=== PATIENT | female | born 1980 | race Two or more races ===

== ENCOUNTER 2019-04-19 08:23 | Inpatient (IN) | payer OTHER ==
[~2019-04-19] VITALS: Ht 180.3 cm; Wt 67.6 kg
[2019-04-19] MEDS ORDERED: DEXTROSE 50%-WATER 50 ML DISP.SYRIN IVP ONE (08:30)
--- NOTE | 2019-04-19 08:30 | NUR ---
[id number] FRM HOME, ALTERED W/ LOW BLOOD SUGAR. D10 AND GLUCAGON GIVEN FURNACE INSTALLER. BG 35 FURNACE INSTALLER. PATIENT STARTING TO BECOME VERBALLY RESPONSIVE ONCE TRANSFERRED TO BED. PATIENT CAME IN WITH IO ON LEFT LEG FROM PARAMEDICS. PATIENT ATTACHED TO THE PROGRESS MAN.
[2019-04-19] MEDS ORDERED: DEXTROSE 50%-WATER 50 ML DISP.SYRIN ONE (08:36)
--- NOTE | 2019-04-19 08:40 | NUR ---
ED Adams MD AWARE AT BEDSIDE. IV LINE ESTABLISHED, BLOOD DRAWN.
[2019-04-19 08:49] LABS: BASOPHILS % (AUTO) 0.2 % (0.0-2.0); HEMATOCRIT 43 % (33-45); HEMOGLOBIN 13.9 g/dL (11.5-14.8); LYMPHOCYTES # (AUTO) 0.6 /CMM (0.8-4.8); MEAN CORPUSCULAR HGB CONC 33 g/dl (31.0-36.0); MEAN CORPUSCULAR VOLUME 106 fL (82-100); MONOCYTES # (AUTO) 0.4 /CMM (0.1-1.30); MONOCYTES % (AUTO) 3.4 % (2.0-12.0); NEUTROPHILS # (AUTO) 9.4 /CMM (1.8-8.9); NEUTROPHILS % (AUTO) 90.4 % (43.0-81.0); PLATELET COUNT (AUTO) 284 /CMM (150-450); RED BLOOD CELL COUNT(AUTO) 4.02 MIL/uL (4.0-5.2); WHITE BLOOD COUNT (AUTO) 10.5 K/uL (4.3-11.0)
[2019-04-19 08:56] LABS: CALCIUM, SERUM 9.4 mg/dL (8.5-10.1); CARBON DIOXIDE 15 mmol/L (21-32); CHLORIDE 102 mmol/L (98-107); CREATININE 0.9 mg/dL (0.6-1.3); GLUCOSE 51 mg/dL (74-106); POTASSIUM 4.7 mmol/L (3.5-5.1); SODIUM SERUM 141 mmol/L (136-145); UREA NITROGEN, BLOOD 9 mg/dL (7-18)
[2019-04-19] MEDS ORDERED: ONDANSETRON HCL/PF 4 MG/2 ML VIAL ONE (09:05)
[2019-04-19 09:06] LABS: ALANINE AMINOTRANSFERASE 656 U/L (12-78); ALBUMIN 4.4 g/dL (3.4-5.0); ALKALINE PHOSPHATASE 127 U/L (46-116); ASPARTATE AMINOTRANSFERASE 876 U/L (15-37); BILIRUBIN,DIRECT 1.1 mg/dL (0.0-0.2); BILIRUBIN,TOTAL 1.5 mg/dL (0.2-1.0); TOTAL PROTEIN, SERUM 7.8 g/dL (6.4-8.2)
--- NOTE | 2019-04-19 09:10 | NUR ---
VERÓNICA AT BEDSIDE, SPOKE WITH DR. ARCHULETA.
[2019-04-19] MEDS ORDERED: ONDANSETRON HCL/PF 4 MG/2 ML VIAL IV ONE (09:30)
[2019-04-19] MEDS ORDERED: IV NS 0.9% 1,000 ML BAG IV ONE (09:30)
[2019-04-19 09:54] LABS: NEUTROPHILS % (MANUAL) 88 (42-76)
--- NOTE | 2019-04-19 09:54 | NUR ---
PATIENT A/OX4, TOLERATED MEAL TRAY.
[2019-04-19 09:55] LABS: LYMPHOCYTES % (MANUAL) 6 % (16-48); MONOCYTES % (MANUAL) 6 % (0-11.0)
--- NOTE | 2019-04-19 10:26 | NUR ---
PATIENT AWAKE AND ALERT, STILL C/O WEAKNESS ON BLE. PATIENT UNABLE TO GET OUT OF BED.
[2019-04-19 10:44] LABS: APPEARANCE,URINE Clear (CLEAR); BILIRUBIN,URINE Negative (NEGATIVE); BLOOD, URINE Large Ery/uL (NEGATIVE); COLOR,URINE Yellow (YELLOW); KETONES,URINE 15 (NEGATIVE); LEUKOCYTE ESTERASE ,URINE Negative (NEGATIVE); NITRITE, URINE Negative (NEGATIVE); PH,URINE 5.5 (5.0-8.0); PROTEIN,URINE Trace mg/dl (NEGATIVE); UGLUCOSE Negative (NEGATIVE); UROBILINOGEN,URINE 0.2 EU/dL (0.2)
[2019-04-19 10:45] LABS: BACTERIA,URINE Few /HPF (None Seen); SQUAMOUS EPITHELIAL CELL,UR Few /HPF (None Seen)
[2019-04-19] MEDS ORDERED: ESCI20TA PO (10:45)
[2019-04-19] MEDS ORDERED: ONDA4TAB5 PO (10:45)
[2019-04-19] MEDS ORDERED: AMPH30CA3 PO (10:45)
[2019-04-19] MEDS ORDERED: PROP10TA10 PO (10:45)
[2019-04-19] MEDS ORDERED: TRAZ-252 PO (10:45)
[2019-04-19] MEDS ORDERED: GABA-534 PO (10:45)
[2019-04-19] MEDS ORDERED: BUPR-96 PO (10:45)
--- NOTE | 2019-04-19 11:28 | NUR ---
CALLED [facility].
--- NOTE | 2019-04-19 11:32 | NUR ---
CALLED FOR TELE BED
[2019-04-19] MEDS ORDERED: IV D5/0.45 NACL 1,000 ML IV PRN (11:42)
[2019-04-19] MEDS ORDERED: HYDROCODONE/APAP 5/325MG 1 EACH TABLET PO PRN (12:00)
[2019-04-19] MEDS ORDERED: ONDANSETRON HCL/PF 4 MG/2 ML VIAL IVP PRN (12:00)
[2019-04-19] MEDS ORDERED: ACETAMINOPHEN 325 MG TABLET PO PRN (12:00)
[2019-04-19] MEDS ORDERED: MAGNESIUM HYDROXIDE 30 ML UDC PO PRN (12:00)
[2019-04-19] MEDS ORDERED: MAG HYDROX/AL HYDROX/SIMETH 30 ML UDC PO PRN (12:00)
[2019-04-19] MEDS ORDERED: ZOLPIDEM TARTRATE 5 MG TABLET PO PRN (12:00)
[2019-04-19] MEDS ORDERED: Z GUARD REMEDY 2 OZ OINT TP PRN (12:00)
--- NOTE | 2019-04-19 12:01 | NUR ---
GOT BED 116-2
--- NOTE | 2019-04-19 12:17 | NUR ---
REPORT GIVEN TO FAUZIA FUNEZ.
--- NOTE | 2019-04-19 12:47 | NUR ---
PATIENT TRANSFERRED TO ROOM 116-2 VIA ACLS PROTOCOL. NO DISTRESS NOTED.
[2019-04-19 13:00] VITALS: BP 116/48
[2019-04-19] MEDS: BLOOD SUGAR DIAGNOSTIC 1 EACH STRIP IN SCH ×3 (13:00→20:54)
--- NOTE | 2019-04-19 13:00 | NUR ---
RN NOTES PATIENT EATING.REFUSED REPEAT BLOOD SUGAR CHECK AT THIS TIME.
--- NOTE | 2019-04-19 13:00 | NUR ---
ASSISTANT ASSOCIATE PROFESSOR NOTES RECEIVED PT FROM ER, DX DEHYDRATION, HYPOGLYCEMIA BY DR. WRIGHT. PT AAO X 3, ACCOMPANIED BY FRIEND. ON ROOM AIR, NOT IN ANY DISTRESS. SINUS RHYTHM HR 83 ON MONITOR, DENIES PAIN/DISCOMFORT AT THIS TIME, RT HAND G 20 FLUSHES WELL, SITE CLEAR. BODY ASSESSMENT DONE. NO SKIN ISSUES. UNIT ORIENTATION DONE AND USE OF CALL LIGHT. VERBALIZED UNDERSTANDING.SAFETY MEASURES IN PLACE. BED LOW LOCKED. WILL CONTINUE TO MONITOR.. PATIENT SEEN BY DR. WRIGHT EARLIER. ALL ADMIT ORDER CARRIED OUT.
[2019-04-19 16:00] VITALS: BP 120/76
[2019-04-19] MEDS ORDERED: PROPRANOLOL HCL 10 MG TABLET PO PRN (17:00)
--- NOTE | 2019-04-19 17:59 | NUR ---
RN NOTES ACCUCHECK DONE. BS 357 MG/DL. DR. WRIGHT AWARE DC D5 1/2 NS IVF AND MONITOR.
--- NOTE | 2019-04-19 18:28 | NUR ---
RN NOTES ALL NEEDS MET FOR NOW. PT RESTING. NOT IN ANY DISTRESS. WILL ENDORSE TO NEXT SHIFT FOR IFTIKHAR.
[2019-04-19 20:00] VITALS: BP 105/58
--- NOTE | 2019-04-19 20:00 | NUR ---
INFORMATICS SPEC NOTE PT IN BED AWAKE. A/O X 4, NO SOB, NO DISTRESS OR DISCOMFORT NOTED. DENIES PAIN. ON TELE ST HR 107. RT HAND WITH SL #20 G . NO S/S OF HYPO OR HYPERGLYCEMIA NOTED. SIDE RAILS UP X 2 AND CALL LIGHT WITHIN REACH. VSS. CONTINUE TO MONITOR HER.
--- NOTE | 2019-04-19 20:01 | NUR ---
BUILDING SURVEYOR NOTE PT REFUSED TO BE CHANGED OR MOVE IN THE BED. UNABLE TO DO SKIN ASSESSMENT AT THIS TIME.
--- NOTE | 2019-04-19 20:53 | NUR ---
ENROUTE CONTROLLER NOTE NOTED PT VOMITED X 1 300 ML OF GREENISH COLOR WITH FOOD PARTICLES. ZOFRAN 4 MG IVP GIVEN. CONTINUE TO MONITOR HER. BS 292 AT THIS TIME.
[2019-04-19] MEDS ORDERED: NALT50TA PO (21:50)
[2019-04-19] MEDS ORDERED: TRAZ-257 PO (21:50)
[2019-04-19] MEDS ORDERED: HYDR-500 PO (21:50)
[2019-04-19] MEDS ORDERED: TRAZODONE 50 MG TABLET PO SCH (22:00)
[2019-04-20] VITALS (29 sets, daily range): BP systolic 88–140; BP diastolic 35–82
--- NOTE | 2019-04-20 00:11 | NUR ---
MINISTER ASSISTANT NOTE NEW ORDERS NOTED. INFORMED PT NOT TO EAT OR DRINK ANYTHING. PT REFUSED AND WANTS TO BE DISCHARGED OR TRANSFERRED TO [facility] IN THE MORNING.
[2019-04-20] MEDS: BLOOD SUGAR DIAGNOSTIC 1 EACH STRIP IN SCH ×6 (01:19→22:05)
--- NOTE | 2019-04-20 04:00 | NUR ---
MD PEDIATRIC ALLERGIST NOTE NOTED PT IS SLEEPING HARD TO AROUSE, AFTER SHAKING PT RESPONDED. CHECKED BS WHICH SHOWS LOW RECHECED IT STILL SHOW LOW. D 50% STAT GIVEN. WILL RECHECK HER AGAIN.
[2019-04-20] MEDS ORDERED: DEXTROSE 50%-WATER 50 ML DISP.SYRIN ONE ×2 (04:02→12:33)
--- NOTE | 2019-04-20 04:29 | NUR ---
ASSEMBLER CLIP ON SUNGLASSES NOTE BS RECHECKED 148, ALSO MIRNA RIVAS INFORMED NO NEW ORDER GIVEN.
[2019-04-20] MEDS ORDERED: DEXTROSE 50%-WATER 50 ML DISP.SYRIN IVP ONE ×2 (04:30→07:00)
--- NOTE | 2019-04-20 06:00 | NUR ---
BONE CHAR KILN TENDER NOTE GAMBLING BOX PERSON TRIED TO CHANGE THE BED LINENS, INFORMED HIM ABOUT BRUISES ON THE BODY. SKIN ASSESSMENT DONE. PICTURES TAKEN AND PLACE THEM IN THE. PT IS C/O PAIN WHEN TOUCHED THE BRUISES. NO SWELLING NOTED. PT DENIES ANY FIGHT AT HOME. STATES " I FELL DOWN". WILL ENDORSE TO DAY SHIFT FOR CONTINUE TO MONITOR HER.
--- NOTE | 2019-04-20 06:35 | NUR ---
LUMBER HACKER NOTE PT IN BED LETHARGIC, CHECKED BS 36, D 50% GIVEN. WILL RECHECK. ALSO PAGED MIRNA RIVAS. CONTINUE TO MONITOR HER CLOSELY.
--- NOTE | 2019-04-20 06:53 | NUR ---
0653 ROB BRADLEY NOTIFIED OF BS 36 WITH ORDER TO START PATIENT ON D5NS AT 75ML/HR. ORDER NOTED AND CARRIED OUT.
--- NOTE | 2019-04-20 06:54 | NUR ---
BATH TESTER NOTE STARTED PT ON D5NS AT 75 ML/HR, ALSO RECHECKED BS 59 AT THIS TIME. PT IS AROUSABLE. WILL ENDORSE TO DAY SHIFT NURSE FOR CONTINUE CARE.
[2019-04-20] MEDS ORDERED: IV D5/ 0.9% NACL 1,000 ML IV ONE (07:00)
[2019-04-20] MEDS ORDERED: PANTOPRAZOLE 40 MG TABLET.DR PO SCH (07:30)
--- NOTE | 2019-04-20 07:30 | NUR ---
LAUNDRY CLERK OPENING NOTES RECEIVED PT ASLEEP IN BED FROM PUNCH HAND NURSE. PT IS AO X1. ALTERED MENTAL STATUS NOTED. PATIENT IS NOT FOLLOWING COMMANDS. MENTAL STATUS IS ALTERED FROM LAST NIGHT. BLOOD SUGAR WAS CHECKED, IT WAS 92. ORANGE JUICE WAS GIVEN TO HELP BRING IT UP MORE. D5 1/2 NS RUNNING AT 75MLS/HR IN THE RIGHT ARM. CHANGE IN PATIENT CONDITION WAS NOTIFIED TO CHARGE NURSE. WAITING ON DR TO DO HER ROUNDING. SAFETY MAINTAINED. CALL LIGHT WITHIN REACH. WILL CONTINUE MONITORING.
[2019-04-20 07:45] LABS: BASOPHILS % (AUTO) 0.1 % (0.0-2.0); HEMATOCRIT 36 % (33-45); LYMPHOCYTES # (AUTO) 0.2 /CMM (0.8-4.8); LYMPHOCYTES % (AUTO) 1.8 % (20.0-44.0); MEAN CORPUSCULAR HGB CONC 33 g/dl (31.0-36.0); MEAN CORPUSCULAR VOLUME 104 fL (82-100); MONOCYTES # (AUTO) 0.2 /CMM (0.1-1.30); MONOCYTES % (AUTO) 2.2 % (2.0-12.0); NEUTROPHILS # (AUTO) 9.9 /CMM (1.8-8.9); NEUTROPHILS % (AUTO) 95.9 % (43.0-81.0); PLATELET COUNT (AUTO) 175 /CMM (150-450); RED BLOOD CELL COUNT(AUTO) 3.48 MIL/uL (4.0-5.2); WHITE BLOOD COUNT (AUTO) 10.3 K/uL (4.3-11.0)
[2019-04-20 08:15] LABS: ALBUMIN 3.7 g/dL (3.4-5.0); BILIRUBIN,DIRECT 2.1 mg/dL (0.0-0.2); BILIRUBIN,TOTAL 2.8 mg/dL (0.2-1.0); CALCIUM, SERUM 8.4 mg/dL (8.5-10.1); CREATININE 1.1 mg/dL (0.6-1.3); MAGNESIUM 1.6 mg/dL (1.8-2.4); PHOSPHORUS 2.7 mg/dL (2.5-4.9); POTASSIUM 4.6 mmol/L (3.5-5.1); TOTAL PROTEIN, SERUM 6.4 g/dL (6.4-8.2)
[2019-04-20 08:32] LABS: THYROID STIMULATING HORMONE 0.811 uIU/mL (0.358-3.74)
[2019-04-20] MEDS ORDERED: AMPHET PO SCH (09:00)
[2019-04-20] MEDS ORDERED: BUPROPION XL 150 MG TAB.ER.24 PO SCH (09:00)
[2019-04-20] MEDS ORDERED: D AMPHET PO SCH (09:00)
[2019-04-20] MEDS ORDERED: ESCITALOPRAM OXALATE (10 MG) 10 MG TABLET PO SCH (09:00)
[2019-04-20] MEDS ORDERED: AMPHET ASP PO SCH (09:00)
--- NOTE | 2019-04-20 10:00 | NUR ---
CHAMBER WORKER ROUNDING NOTES DR JESSICA Shaabzz SAW THE PATIENT. NOTED THE CHANGE IN MENTAL STATUS SINCE LAST NIGHT. WILL ORDER CT SCAN AND NEURO EVAL. WILL CONTINUE TO MONITOR CLOSELY.
--- NOTE | 2019-04-20 11:50 | NUR ---
COKE LOADER NOTE DID AN ACCU CHECK ON THE PATIENT. BG IS 44, NOTIFIED CHARGE NURSE, ORDERED DEXTROSE 50% TO ADMINISTER TO THE PT. IV PUSH 50ML DEXTROSE TO PT.
--- NOTE | 2019-04-20 12:05 | NUR ---
FLY FRAME TENDER NOTES BLOOD SUGAR LEVEL WENT UP TO 114 15 MIN AFTER ADMINISTERING THE DEXTROSE VIA IV PUSH. WILL CONTINUE TO CLOSELY MONITOR.
[2019-04-20] MEDS ORDERED: DEXTROSE 50%-WATER 50 ML DISP.SYRIN IVP STA (12:34)
[2019-04-20] MEDS ORDERED: Sodium Chloride 154 MEQ in IV 10% DEXTROSE 1,000 ML IV PRN (13:00)
[2019-04-20] MEDS ORDERED: KETOROLAC TROMETHAMINE INJ 30 MG/ML VIAL IV PRN (13:00)
[2019-04-20] MEDS: Magnesium 1GM/D5W 100ML PREMIX 100 ML IV SCH ×2 (13:04→16:49)
--- NOTE | 2019-04-20 13:05 | NUR ---
NEUROSURGERY RESEARCH DIRECTOR NOTES CHARGE NURSE NOTIFIED ME THAT THE PATIENT IS BEING SENT TO ICU DUE TO UNSTABLE CONDITION. PATIENT HAS AMS AND IS UNABLE TO FOLLOW COMMANDS. ENDORSED PT TO ICU NURSE FARZANA, PATIENT WILL BE MONITORED CLOSELY. SAFETY WAS MAINTAINED.
--- NOTE | 2019-04-20 13:12 | NUR ---
ICU/RN: RECEIVED PT FROM TELE FIRST FLOOR. PT NON RESPONSIVE, DOES NOT FOLLOW COMMANDS, OCCASIONALLY SCREAMING, ENCEPHALOPATHIC. ON ROOM AIR, NO ACUTE RESP.DISTRESS NOTED. SINUS TACH ON TELE. AMMONIA ELEVATED. HEAD CT COMPETE. PT ON REGULAR DIET, NOW NPO DUE TO MENTAL STATUS. FRIENDS/COUSINS AT BEDSIDE, [place]. ALL NEEDS WILL BE ATTENDED TO, SAFETY MEASURES TAKEN, BED IN LOW POSITION, SIDE RAILS UP, CALL LIGHT WITHIN REACH.
[2019-04-20] MEDS ORDERED: IV 10% DEXTROSE 1,000 ML IV ONE (13:30)
--- NOTE | 2019-04-20 14:00 | NUR ---
ICU/RN: VARGAS CATH INSERTED, RECTAL TUBE INSERTED TO ADMIN LACTULOSE, NO NG AT THIS TIME PER MD.
[2019-04-20] MEDS ORDERED: LIDOCAINE 1% INJ 50 ML MDV IJ ONE (14:30)
[2019-04-20] MEDS: LACTULOSE 10 G/15 ML UDC (PYXIS) PO SCH ×3 (15:09→22:02)
--- NOTE | 2019-04-20 17:00 | NUR ---
RT PT ORALLY INTUBATED BY ER MD MAI . 7.5 ETT AND 23 CM AT THE LIP. POSITIVE COLOR CHANGE. BILATERAL BREATH SOUNDS ON AUSCULTATION. ETT PATENT AND SECURED BY ANCHOR FAST. VENT PLUGGED INTO RED OUTLET. ALARMS ON AND FUNCTIONING PROPERLY. AMBU BAG PLACED AT HEAD OF BED. NO SOB NOTED AT THIS TIME. WILL CONTINUE TO MONITOR THE PT CLOSELY FOR ANY CHANGE OF CONDITION. RN FARZANA AND CHARGE NURSE DELVIN AT BEDSIDE. Addendum: 04/20/19 at 1821 by UBALDO NATH RT Amended: Links added.
--- NOTE | 2019-04-20 17:15 | NUR ---
RT ADVANCED ETT FROM 23 CM TO [address] LIP PER DR. JOLLY ORDERS.
[2019-04-20 17:19] LABS: ABG OXYGEN SATURATION 97.9 % (92.0-98.5); ABG PH 7.155 (7.350-7.450); ABG PO2 161.6 mmHg (75.0-100.0); AaDO2 92.6 mmHg; COHb 0.3 % (0.5-1.5); MetHb 0.5 % (0.0-1.5); O2Hb 97.1 % (94.0-97.0); SITE, ABG Left Brachial
[2019-04-20] MEDS ORDERED: methylPREDNISolone SOD SUCC 125 MG/2ML VIAL IV ONE (17:30)
--- NOTE | 2019-04-20 17:30 | NUR ---
ICU/RN: PER AND NEUROLOGIST'S ORDER PT INTUBATED @ 1700. PT NON RESPONSIVE. ABG TO FOLLOW. PER CHEST XRAY ETT NEEDED TO BE ADJUSTED, POST ADJUSTMENT CHEST XRAY DONE. ETT .09/08 AT THE [facility]. SETTINGS ORDERED BY . PER ABG RESULTS RECEIVED ORDERS FOR D10 WITH 3AMPS OF BICARB AT 150ML/HR PER
[2019-04-20] MEDS: DEXTROSE IV PRN (17:51)
[2019-04-20] MEDS: PROPOFOL 100 ML IV PRN (17:51)
[2019-04-20] MEDS: SODIUM BICARBONATE IV PRN (17:51)
--- NOTE | 2019-04-20 17:55 | NUR ---
ICU/RN: PT TRANSPORTED TO CT FOR CT OF HEAD WITH ACLS GUIDELINES.
[2019-04-20] MEDS ORDERED: DEXTROSE IV ONE (18:00)
[2019-04-20] MEDS ORDERED: SODIUM BICARBONATE IV ONE (18:00)
[2019-04-20 18:03] LABS: ALBUMIN 3.7 g/dL (3.4-5.0); BILIRUBIN,TOTAL 3.9 mg/dL (0.2-1.0); TOTAL PROTEIN, SERUM 6.3 g/dL (6.4-8.2)
--- NOTE | 2019-04-20 18:28 | NUR ---
ICU/RN: CRITICAL LABS: PT 74/INR 7.70, INFORMED ORDERS RECEIVED FOR 2 UNITS FFP AND VIT.K, WILL FOLLOW THROUGH.
[2019-04-20] MEDS ORDERED: PHYTONADIONE INJ 10 MG/1 ML AMPUL SQ ONE (18:30)
[2019-04-20] MEDS ORDERED: LORAZEPAM INJ 2 MG/ML VIAL IV PRN (18:30)
[2019-04-20] MEDS ORDERED: ETOMIDATE 2 MG/ML VIAL IV ONE (18:57)
[2019-04-20] MEDS ORDERED: SUCCINYLCHOLINE CHLORIDE 20 MG/ML VIAL IV ONE (18:57)
--- NOTE | 2019-04-20 18:59 | NUR ---
ICU/RN: EEG COMPETE, WILL F/U WITH RESULTS.
[2019-04-20 19:19] LABS: ALBUMIN 3.7 g/dL (3.4-5.0); TOTAL PROTEIN, SERUM 6.2 g/dL (6.4-8.2)
--- NOTE | 2019-04-20 19:51 | NUR ---
ICU/RN: REPORT ENDORSED TO NIGHT NURSE. PT INTUBATED 7.09/08 AT THE [facility]. ON VENT SETTINGS ORDERED, PT TACHYPNEIC, LABORED RESPIRATIONS. PT SEDATED WITH DIPRIVAN. RIGHT UPPER ARM MIDLINE PATENT, D10 WITH 3 AMPS BICARB INFUSING. ORDERS FOR FFP PLACED. LAB PENDING. WILL SIGN EMERGENCY CONSENT. NO FAMILY IN THE STATES. BILATERAL SOFT WRIST RESTRAINTS IN PLACE, ASSESSED PER PROTOCOL. ALL NEEDS ATTENDED TO, SAFETY MEASURES TAKEN, BE IN LOW POSITION, SIDE RAILS UP, SEIZURE PRECAUTION IN PLACE
--- NOTE | 2019-04-20 20:00 | NUR ---
RN NOTES RECEIVED PATIENT ORALLY INTUBATED OF ETT 7.5 AND 29 CM AT LIP LINE WITH VENT SETTING AC 16 TV 500 FIO2 40% PEEP 5. PATIENT IS SEDATED WTIH DIPRIVAN. ST HR 122 ON TELE MONITOR. SATURATION 100%. AFEBRILE. VSS. IV SITE ON AURELIANO MIDLINE RUNNING WITH D10+ 3 AMP BICARB @ 150 ML/HR AND PROPOFOL AT 25 MCG/KG/MIN TOLERATED WELL. AND RIGHT HAND G 20 SL C/D/I NO SEIZURE NOTED. PATIENT HAS VARGAS CATH DRAINED WITH BECCA COLOR URINE AND FLEXISEAL INTACT AND PATENT, KEPT OFF FROM THE FLOOR. AWAITING FOR TYPE AND SCREEN RESULT FOR 2 UNITS FFP TO BE GIVEN. PATIENT IS CLEAN AND DRY. OFFLOADED EXT WITH PILLOWS. WILL CLOSELY MONITOR.
--- NOTE | 2019-04-20 20:30 | NUR ---
ARMIN COLLINS FROM [facility] CALLED AND ASKED SHORT HISTORY FOR THE PATIENT, SPOKE TO DANIELE TEE WELL VIA PHONE.
[2019-04-20 21:17] LABS: POTASSIUM 5.1 mmol/L (3.5-5.1)
[2019-04-20 21:18] LABS: CALCIUM, SERUM 8.1 mg/dL (8.5-10.1)
[2019-04-20 21:19] LABS: CREATININE 1.4 mg/dL (0.6-1.3)
--- NOTE | 2019-04-20 21:23 | NUR ---
RN NOTES SARAH FROM LAB CALLED AND REPORTED CRITICAL RESULT OF CO2 6, TUAN RIVAS MADE AWARE.
[2019-04-20 21:28] LABS: ABG BASE EXCESS -11.4 mmol/L; ABG PCO2 24.4 mmHg (35.0-45.0); ABG PH 7.334 (7.350-7.450); ABG PO2 170.6 mmHg (75.0-100.0); AaDO2 86.5 mmHg; COHb 0.2 % (0.5-1.5); MetHb 0.7 % (0.0-1.5); O2Hb 97.1 % (94.0-97.0); SITE, ABG Right Brachial
--- NOTE | 2019-04-20 21:35 | NUR ---
ABG results were sent to Dr Joaquin, per no changes at this time. Addendum: 04/20/19 at 2136 by MELISSA MCCULLOUGH RT Amended: Links added.
--- NOTE | 2019-04-20 21:44 | NUR ---
RN NOTES TUAN MECHANICAL MAINTENANCE INSTRUCTOR AT BEDSIDE SPOKE TO NAY (COUSIN) AND AND INFORMED REGARDING POC.
--- NOTE | 2019-04-20 22:54 | NUR ---
RN NOTES CALLED AND SPOKE WITH JEREMI RICHARDSON AND GIVE INFORMATION REGARDING THE PATIENT PAPER
--- NOTE | 2019-04-20 22:54 | NUR ---
RN NOTES PICC LINE INSERTED BY SARAHY
--- NOTE | 2019-04-20 22:55 | NUR ---
RN NOTES SPOKE TO JEREMI FROM [facility] AND GAVE INFORMATION REGARDING THE TRANSFER PAPER. PER JEREMI PATIENT WILL BE TRANSFER TO CRITICAL CARE ROOM [address] CALLEJAS. AND NEEDS ALL DOCUMENTS THAT SHE HAS IN THE HOSPITAL SUCH ENTIRE CHART, IMAGING, MEDLIST AND TRANSPORT ARRANGEMENT TO BE GIVEN UPON TRANSFER. THEIR ADD: [address] [facility] [id number] AND TO CALL FOR NURSE REPORT AT TO TRANSFER TO ICU UNIT.
[2019-04-20] MEDS ORDERED: NOREPINEPHRINE 8 MG in IV D5W 500 ML IV PRN (23:30)
[2019-04-20] MEDS ORDERED: NOREPINEPHRINE 4 MG/4 ML AMPUL IV ONE (23:35)
[2019-04-21] VITALS (9 sets, daily range): BP systolic 92–103; BP diastolic 42–51
--- NOTE | 2019-04-21 00:30 | NUR ---
RN NOTES CALLED [facility] SPOKE TO RAUDEL BINDER STRIPPER MACHINE AND GIVE REPORT.
[2019-04-21] MEDS: PROPOFOL 100 ML IV PRN (00:54)
[2019-04-21] MEDS: DEXTROSE IV PRN (00:54)
[2019-04-21] MEDS: SODIUM BICARBONATE IV PRN (00:54)
[2019-04-21] MEDS: BLOOD SUGAR DIAGNOSTIC 1 EACH STRIP IN SCH (01:24)
--- NOTE | 2019-04-21 01:55 | NUR ---
RN NOTES 2 UNITS OF FFP GIVEN AND TOELRATED WELL WITHOUT ASE OR ADVERSE REACTIONS SHOWS.
--- NOTE | 2019-04-21 02:00 | NUR ---
RN NOTES PATIENT LEFT VIA AMBULANZ IN STABLE CONDITION ACCOMPANIED BY NAY (COUSIN) REPORT GIVEN TO TRANSPORT STAFF.PATIENT IN ETT VENT SETTING TOLERATED WELL. SR 98 ON TELE MONITOR. NO ACUTE RESPIRATORY DISTRESS. ALL DUE MEDICINE ADMINISTERED ORDERED. ALL LINES KEPT INTACT AND PATENT WITH ONGOING IV DRIP SUCH DIPRIVAN, LEVOPHED AND IVF D10 WTIH SODIUM BICARB. VSS. LAST BS 210 MG/DL.
[2019-04-21 08:07] LABS: IMMUNOGLOBULIN A, SERUM 89 mg/dL (87-352); IMMUNOGLOBULIN G, SERUM 943 mg/dL (700-1600); IMMUNOGLOBULIN M, SERUM 99 mg/dL (26-217)
[2019-04-21] MEDS ORDERED: methylPREDNISolone SOD SUCC 125 MG/2ML VIAL IV SCH (09:00)
[2019-04-21 09:07] LABS: *ANA ANTI-CENTROMERE B AB <0.2 AI (0.0-0.9); *ANA ANTI-DNA(DS) AB, QN 1 IU/mL (0-9); *ANA ANTI-JO-1 <0.2 AI (0.0-0.9); *ANA ANTICHROMATIN ANTIBODY <0.2 AI (0.0-0.9); *ANA RNP ANTIBODIES <0.2 AI (0.0-0.9); *ANA SJOGREN'S ANTI-SS-A <0.2 AI (0.0-0.9); *ANA SJOGREN'S ANTI-SS-B <0.2 AI (0.0-0.9); *ANAANTI-SCLERODERMA-70 AB <0.2 AI (0.0-0.9); *ANASMITH AB <0.2 AI (0.0-0.9)
[2019-04-23 15:06] LABS: ANTI-MITOCHONDRIAL AB <20.0 Units (0.0-20.0)
== END 2019-04-21 01:45 | disposition short-term general hospital (02) | DRG 441 ==
LOC: ER 08:23 → MEDSG1 12:14 → TELE1 13:31 → ICU 04-20 13:10
PROVIDERS: ADMIT Student in an Organized Health Care Education/Training Program; ATTEND Student in an Organized Health Care Education/Training Program
PROC: 05H933Z Insertion of Infusion Device into Right Brachial Vein, Percutaneous Approach (ICD-10-PCS; principal; 2019-04-20)
PROC: 5A1935Z Respiratory Ventilation, Less than 24 Consecutive Hours (ICD-10-PCS; principal; 2019-04-20)
PROC: 30233K1 Transfusion of Nonautologous Frozen Plasma into Peripheral Vein, Percutaneous Approach (ICD-10-PCS; principal; 2019-04-20)
PROC: 0BH17EZ Insertion of Endotracheal Airway into Trachea, Via Natural or Artificial Opening (ICD-10-PCS; principal; 2019-04-20)
DX: K72.00 Acute and subacute hepatic failure without coma (principal); K85.90 Acute pancreatitis without necrosis or infection, unspecified; G92 Toxic encephalopathy; E87.2 Acidosis; B17.9 Acute viral hepatitis, unspecified; D68.9 Coagulation defect, unspecified; E16.2 Hypoglycemia, unspecified; E86.0 Dehydration; R74.0 Nonspecific elevation of levels of transaminase and lactic acid dehydrogenase [LDH]; F10.21 Alcohol dependence, in remission; R56.9 Unspecified convulsions; Z79.899 Other long term (current) drug therapy; F32.9 Major depressive disorder, single episode, unspecified
CPT/HCPCS: 31720; 36415; 36569; 36600; 70450-TC; 71045-TC; 76700-TC; 80048-TC; 80061-TC; 80074; 80076-TC; 80305; 81000-TC; 82140-TC; 82150-TC; 82784; 82803-TC; 82962-TC; 83516; 83605-TC; 83690-TC; 83735-TC; 84100-TC; 84443-TC; 84484-TC; 84703-TC; 85025-TC; 85652-TC; 85730-TC; 86140-TC; 86225; 86226; 86235; 86850-TC; 87040-TC; 87081-TC; 87086-TC; 87186-TC; 93979-TC; 94002-TC; 94003-TC; 95819-TC; C1751; G0378; G0480; J0330; J2405; J2930; J3430; J3475; J3490; J7030; J7042; J7050; J7060; P9017-BL